=== PATIENT | female | born 2005 | race Hispanic/Latino ===

== ENCOUNTER 2024-06-14 12:36 | Inpatient (IN) | payer SELFPAY ==
[2024-06-14] VITALS (41 sets, daily range): BP systolic 91–125; BP diastolic 52–82; PULSE 75–100; RESP 14–16; TEMP 36.1–37.2; O2SAT 98–100; BMI 27.7
[2024-06-14] MEDS: Lactated Ringers 1,000 ML 999 ML IV (12:45)
[2024-06-14 13:04] LABS: Absolute Lymphocyte Count 0.86 X10^3/uL (0.83-4.51); Absolute Neutrophil Count 6.9 X10^3/uL (2.0-7.7); Basophil# 0.05 X10^3/uL; Basophil% 0.6 % (0-1); Eosinophil# 0.01 X10^3/uL; Eosinophils% 0.1 % (0-5); Hematocrit 36.9 % (37-47); Hemoglobin 11.8 g/dL (12.0-15.0); Lymphocyte # 0.86 X10^3/ul (0.83-4.51); Lymphocyte % 10.5 % (19-41); Mean Corpuscular Hgb 24.7 pg (27.0-32.0); Mean Corpuscular Volume 77.4 fL (81-99); Monocyte# 0.31 X10^3/uL; Monocyte% 3.8 % (0-10); NRBC Flagged by Analyzer 0 % (0-5); Neutrophil # 6.91 X10^3/uL (2.7-7.7); Neutrophil % 84.4 % (47-70); POSITIVE MORPHOLOGY YES; Platelet Count 174 K/mm3 (150-450); RBC Distribution Width CV 13.7 % (11.6-14.6); RBC Distribution Width SD 37.2 fl (35.1-43.9); Red Blood Count 4.77 M/mm3 (4.2-5.4); White Blood Count 8.2 K/mm3 (4.4-11.0)
[2024-06-14 13:10] LABS: Differential Indicated SCAN CRITERIA MET
[2024-06-14] MEDS: Penicillin G Pot 5,000,000 UNITS in 0.9% Normal Saline (100mL MB+) 100 ML 150 UNITS IV (13:26)
[2024-06-14] MEDS: fentaNYL-bupivacaine (epidural) 100 ML BAG EPIDURAL (13:51)
[2024-06-14] MEDS: Lactated Ringers 1,000 ML 200 ML IV (13:58)
[2024-06-14 14:05] LABS: Syphilis Antibodies Non-reactive
[2024-06-14] MEDS: Azithromycin 500 MG in Dextrose 5%-Water (250mL Bag) 250 ML 250 MG IV (14:36)
--- NOTE | 2024-06-14 16:34 | PCM.HP.OB ---
HPI - General General Date of Admission: 06/14/24 HPI Narrative BRIDGETT ANAYA, is a 19 F who presents G1PO at 39w1d in active labor Maternal Data Information PATRICK Calculator Estimated Delivery Date Method Current WG Current Estimate 06/20/24 Manual 39w 1d PFSH PFS Medical History (Updated 06/14/24 @ 17:10 by Priscila Montelongo CNM) Chlamydia Late skilled nursing Medications ?Medication ?Instructions ?Recorded ?Last Taken ?Type aspirin 81 mg capsule 81 mg PO DAILY 06/14/24 Unknown History vits no.130-ferrous fum 1 tab PO DAILY 06/14/24 Unknown History 27 mg iron-folic acid 800 mcg tablet ( Vitamin) Allergy/AdvReac Type Severity Reaction Status Date / Time No Known Allergies Allergy Verified 06/14/24 12:34 Family History no significant family his Surgical History no surgical history Social History Smoking Status: Never smoker History Elective abortions Hx Para 0 Spontaneous abortions Hx # Term Pregnancies Ectopic pregnancies Hx # Pregnancies Multiple births # of living children NST FHR Rate Baby A Baseline: 125 Variability:: Moderate Accelerations:: 15 x 15 Decelerations:: Variable FHR Category:: Category II Uterine Activity:: Every 2-3 minutes strong ROS Constitutional Constitutional: Reports systems reviewed and no addt'l complaints, except as documented; Denies headache(s) Eyes Eyes: Denies acute decrease in peripheral vision, blurry vision or change in vision ENT HEENT: Reports systems reviewed and no addt'l complaints, except as documented Cardiovascular Cardiovascular: Denies chest pain or dizziness Respiratory/Chest Respiratory/Chest: Denies cough, dyspnea, dyspnea on exertion, shortness of breath at rest or shortness of breath with exertion Gastrointestinal Gastrointestinal: Reports abdominal pain; Denies diarrhea, nausea or vomiting Genitourinary Genitourinary: Denies abdominal discomfort Musculoskeletal Musculoskeletal: Denies limited range of motion Integumentary Integumentary: Reports systems reviewed and no addt'l complaints, except as documented Neurologic Neurologic: Reports systems reviewed and no addt'l complaints, except as documented Psychiatric Psychiatric: Reports systems reviewed and no addt'l complaints, except as documented Endocrine Endocrinology: Reports systems reviewed and no addt'l complaints, except as documented Hematologic/Lymphatic Hematologic/Lymphatic: Reports systems reviewed and no addt'l complaints, except as documented Allergic/Immunologic Allergic/Immunologic: Reports systems reviewed and no addt'l complaints, except as documented Vital Signs Vital Signs Vital Signs: 06/14/24 12:41 06/14/24 12:41 06/14/24 12:41 Temperature Temperature Source Temporal Pulse Rate 81 Respiratory Rate Blood Pressure 125/82 H BP Systolic 125 BP Diastolic 82 Pulse Ox 06/14/24 12:41 06/14/24 12:41 06/14/24 12:41 Temperature Temperature Source Pulse Rate 79 Respiratory Rate 16 Blood Pressure BP Systolic BP Diastolic Pulse Ox 100 06/14/24 12:41 06/14/24 13:43 06/14/24 13:43 Temperature 98.0 F Temperature Source Pulse Rate 85 Respiratory Rate Blood Pressure BP Systolic BP Diastolic Pulse Ox 100 06/14/24 13:48 06/14/24 13:48 06/14/24 13:54 Temperature Temperature Source Pulse Rate 93 Respiratory Rate Blood Pressure 107/60 BP Systolic 107 BP Diastolic 60 Pulse Ox 99 06/14/24 13:54 06/14/24 13:54 06/14/24 13:58 Temperature Temperature Source Pulse Rate 85 Respiratory Rate Blood Pressure 105/58 L BP Systolic 105 BP Diastolic 58 Pulse Ox 99 06/14/24 13:58 06/14/24 13:59 06/14/24 13:59 Temperature Temperature Source Pulse Rate 100 91 Respiratory Rate Blood Pressure BP Systolic BP Diastolic Pulse Ox 100 06/14/24 14:03 06/14/24 14:03 06/14/24 14:04 Temperature Temperature Source Pulse Rate 88 90 Respiratory Rate Blood Pressure 105/55 L BP Systolic 105 BP Diastolic 55 Pulse Ox 06/14/24 14:04 06/14/24 14:08 06/14/24 14:08 Temperature Temperature Source Pulse Rate 91 Respiratory Rate Blood Pressure 101/59 L BP Systolic 101 BP Diastolic 59 Pulse Ox 100 06/14/24 14:09 06/14/24 14:09 06/14/24 14:13 Temperature Temperature Source Pulse Rate 92 Respiratory Rate Blood Pressure 102/57 L BP Systolic 102 BP Diastolic 57 Pulse Ox 100 06/14/24 14:13 06/14/24 14:14 06/14/24 14:14 Temperature Temperature Source Pulse Rate 93 93 Respiratory Rate Blood Pressure BP Systolic BP Diastolic Pulse Ox 100 06/14/24 14:18 06/14/24 14:18 06/14/24 14:19 Temperature Temperature Source Pulse Rate 86 82 Respiratory Rate Blood Pressure 106/57 L BP Systolic 106 BP Diastolic 57 Pulse Ox 06/14/24 14:19 06/14/24 14:23 06/14/24 14:23 Temperature Temperature Source Pulse Rate 86 Respiratory Rate Blood Pressure 107/59 L BP Systolic 107 BP Diastolic 59 Pulse Ox 100 06/14/24 14:23 06/14/24 14:23 06/14/24 14:23 Temperature Temperature Source Temporal Pulse Rate 87 Respiratory Rate 16 Blood Pressure BP Systolic BP Diastolic Pulse Ox 06/14/24 14:23 06/14/24 14:23 06/14/24 14:29 Temperature 98.0 F Temperature Source Pulse Rate Respiratory Rate Blood Pressure 107/65 BP Systolic 107 BP Diastolic 65 Pulse Ox 100 06/14/24 14:29 06/14/24 15:07 06/14/24 15:07 Temperature Temperature Source Pulse Rate 87 75 Respiratory Rate Blood Pressure 91/52 L BP Systolic 91 BP Diastolic 52 Pulse Ox 06/14/24 16:03 06/14/24 16:03 06/14/24 16:03 Temperature Temperature Source Temporal Pulse Rate 86 Respiratory Rate Blood Pressure 102/61 BP Systolic 102 BP Diastolic 61 Pulse Ox 06/14/24 16:03 06/14/24 16:03 06/14/24 16:03 Temperature 97.3 F L Temperature Source Pulse Rate Respiratory Rate 14 Blood Pressure BP Systolic BP Diastolic Pulse Ox 100 Weight Weight: 137 lb 6 oz Body Mass Index (BMI) 27.7 Physical Exam Const alert and oriented x3 General Appearance: cooperative Orientation / Consciousness: awake, oriented to person, oriented to place and oriented to time Exam Limitations: no limitations HEENT normocephalic Head and Scalp: normal to inspection, normocephalic and atraumatic Face and Sinus: normal facial exam Eyes General Eye: normal appearance of both eyes Neck full ROM Chest Chest: symmetrical chest wall rise Resp normal respiratory effort and normal air movement Auscultation: clear to auscultation bilaterally Cardio regular rate, regular rhythm, S1 normal heart sound, S2 normal heart sound, no murmurs, no rub, no gallops and no clicks GI normal to inspection, nondistended, normoactive bowel sounds and non-tender appearance of the vagina normal Bladder / Kidney Exam: no CVA tenderness Back/Spine normal ROM Extremity normal to inspection and full ROM Skin no rashes or lesions noted Neuro oriented x3, CN's II-XII intact bilaterally and moves all extremities Sensorium / Orientation: awake, alert and oriented to person Motor Exam: clonus absent Deep Tendon Reflexes: Rt Patellar (L4): 2+ and Lt Patellar (L4): 2+ Labs Labs Labs: Blood Type O POSITIVE Antibody Screen NEGATIVE Hct 36.9 % (37-47) L Hgb 11.8 g/dL (12.0-15.0) L Syphilis Total Ab Non-reactive 04/10/24 CT positive, treatment completed. Retesting on 05/14/24 but results not back GC negative RPR negative Rubella non immune HBsAG negative HepC negative HIV negative O positive 1hr GCT normal GBS positive Assessment & Plan (1) Active labor at term: (2) 39 weeks gestation of : (3) Chlamydia infection affecting : COMMENT: 04/10/24 positive, did not complete treatment 05/14/24 JESUS MANUEL positive, treatment completed 06/12/24 JESUS MANUEL, no results Will treat with IV azithromycin during labor x1 dose (4) Language barrier: COMMENT: Romansh Speaking (5) Financial insecurity: PLAN: Plan 1) Admit to labor and delivery 2) Routine labs 3) Epidural for pain management upon request 4) Azithromycin IV x1 dose for unknown chlamydia results 5) GBS positive. PCN IV for prophylaxis 6) collaborative physician and notified of patient status, above assessment and plan.
[2024-06-14] MEDS: Oxytocin 15 Units/NS 250ml 15 UNITS/250 ML IV.SOLN 334 UNITS IV (16:47)
--- NOTE | 2024-06-14 17:12 | OP.PCM_ITS ---
Assessment & Plan (1) Financial insecurity: (2) Language barrier: COMMENT: Finnish Speaking (3) Vaginal delivery: (4) First degree perineal laceration: (5) control counseling: COMMENT: Desires Nexplanon prior to discharge (6) Lactating mother: (7) Rubella non-immune status, antepartum: COMMENT: Offer vaccine PP Maternal Data Information PATRICK Calculator Estimated Delivery Date Method Current WG Current Estimate 06/20/24 Manual 39w 1d Vaginal Delivery Maternal Presentation Maternal Presentation: Active Labor Operative Information Date of Procedure: 06/14/24 Pre-Operative Diagnosis: Active labor at term Post-Operative Diagnosis: , first degree perineal laceration Surgery / Procedure Performed: Spontaneous Vaginal Delivery Type of Anesthesia: Epidural Estimated Blood Loss: 300ml Time of Delivery: 16:43 Findings Description of Procedure: Progressed to complete with urge to push. Epidural for pain management. of viable female over first degree perineal laceration.APGARS 8,9 respectively. Infant head delivered with body immediately forthcoming. Placed on maternal abdomen, strong cry. Mouth and nares suctioned for secretions. Pitocin started for active 3rd stage management. Cord doubly clamped and cut by FOB after pulsations ceased, delayed cord clamping. Placenta delivered intact via bowman, 3 vessel cord intact. Perineum inspected and revealed 1st degree perineal laceration. Repaired with 3.0 vicryl rapide and epidural. Fundus firm and hemostasis achieved. EBL 300ml. Mom and baby stable, planning to breastfeed. Family bonding well. notified of delivery. Presentation: Vertex and COLIN Amniotic Membrane Rupture Type: Artificial Amniotic Fluid Description: Clear Placental Delivery Description: Spontaneous Placenta Disposition: [facility] Cord Vessel Description: 3 Vessels Cord Entanglement: None A Gender: Female (1 minute): 8 (5 minute): 9 Delayed Cord Clamping: Yes Post Vaginal Delivery Medications Given After Delivery: IV Pitocin Episiotomy Description: None Laceration: Perineal Extension/lac and 1st degree Complication Complications: None
[2024-06-14] MEDS: Oxytocin 15 Units/NS 250ml 15 UNITS/250 ML IV.SOLN 83 UNITS IV (17:48)
[2024-06-14] MEDS: 0.9% Saline Lock 10 ML Syringe IV (21:10)
--- NOTE | 2024-06-14 22:43 | NURSING ---
quality process engineer was rommel. #[id number].
--- NOTE | 2024-06-14 23:28 | NURSING ---
grisel lang interpreter being used. #[id number].
--- NOTE | 2024-06-14 23:52 | NURSING ---
this RN used fisher quahog to explain the MMR vaccine since pt is rubella non - immune upon admission. comoran education handout given. pt declines at this time. no MMR to be administered.
[2024-06-15] VITALS (10 sets, daily range): BP systolic 87–107; BP diastolic 50–61; PULSE 72–94; RESP 14–16; TEMP 36.2–36.7; O2SAT 81–99
--- NOTE | 2024-06-15 04:20 | NURSING ---
duran store detective with number [id number].
[2024-06-15 04:41] LABS: Absolute Lymphocyte Count 1.99 X10^3/uL (0.83-4.51); Absolute Neutrophil Count 8.4 X10^3/uL (2.0-7.7); Basophil# 0.04 X10^3/uL; Basophil% 0.4 % (0-1); Eosinophil# 0.03 X10^3/uL; Eosinophils% 0.3 % (0-5); Hematocrit 29.4 % (37-47); Hemoglobin 9.4 g/dL (12.0-15.0); Lymphocyte # 1.99 X10^3/ul (0.83-4.51); Lymphocyte % 17.9 % (19-41); Mean Corpuscular Hgb 24.7 pg (27.0-32.0); Mean Corpuscular Volume 77.4 fL (81-99); Mean Platelet Vol. 14.4 fl (6.2-12.0); Monocyte% 5.4 % (0-10); NRBC Flagged by Analyzer 0 % (0-5); Neutrophil # 8.38 X10^3/uL (2.7-7.7); Neutrophil % 75.5 % (47-70); Platelet Count 158 K/mm3 (150-450); RBC Distribution Width CV 13.6 % (11.6-14.6); RBC Distribution Width SD 37.5 fl (35.1-43.9); White Blood Count 11.1 K/mm3 (4.4-11.0)
[2024-06-15] MEDS: Etonogestrel 68 MG IMPLANT SC (21:08)
--- NOTE | 2024-06-15 21:28 | PN.OBGYN_ITS ---
Subjective Subjective pt doing well. ambulating and voiding without difficulty. ricky PO without N/V. lochia normal. pain controlled. Objective Data Objective Data Vital Signs: Vital Signs Temp Pulse Resp BP Pulse Ox O2 Del Method 97.7 F L 94 16 100/58 L 98 Room Air 06/15/24 16:40 06/15/24 20:48 06/15/24 16:40 06/15/24 20:48 06/15/24 20:48 06/15/24 12:45 Oxygen Delivery Method Room Air Weight: 137 lb 6 oz Body Mass Index (BMI) 27.7 Intake & Output: Intake and Output for Last 24 Hours 06/13/24 06/14/24 06/15/24 23:59 23:59 23:59 Intake Total 2211.52 / 2211.52 Output Total 1700 / 1700 1000 / 1000 Balance 511.52 / 511.52 -1000 / -1000 Lab / Micro Data 06/15/24 04:25 Labs: Laboratory Results - last 24 hr 06/15/24 04:25: WBC 11.1 H, RBC 3.80 L, Hgb 9.4 L, Hct 29.4 L, MCV 77.4 L, MCH 24.7 L, MCHC 32.0, RDW Std Deviation 37.5, RDW Coeff of Sarah 13.6, Plt Count 158, MPV 14.4 H, Immature Gran % (Auto) 0.500, Neut % (Auto) 75.5 H, Lymph % (Auto) 17.9 L, [place] % (Auto) 5.4, Eos % (Auto) 0.3, Baso % (Auto) 0.4, Absolute Neuts (auto) 8.4 H, Absolute Lymphs (auto) 1.99, Nucleated RBC % 0 Micro: Microbiology 06/14/24 12:20 Genital vaginal Chlamydia/Neisseria (PCR) - Final Physical Exam Const alert and no apparent distress General Appearance: comfortable HEENT normocephalic Assessment & Plan (1) Lactating mother: (2) First degree perineal laceration: (3) Vaginal delivery: PLAN: PPD#1 s/p . Doing well. Routine care. Anticipate discharge tomorrow.
--- NOTE | 2024-06-15 21:29 | OP.PCM_ITS ---
Problems Associated Problem List Diagnoses (1) Nexplanon insertion: Report of Operation Date of Procedure: 06/15/24 Pre-Operative Diagnosis: Nexplanon insertion Post-Operative Diagnosis: As above Surgery/Procedure Performed:: Request for Nexplanon Description of Surgical Findings:: N/A Surgeon: Samia Williamson editing internship: None Type of Anesthesia: Local (3 cc of 1% lidocaine) Special Medications: None Specimen's removed: None Drains: N/A Estimated Blood Loss (mL): < 10 cc Fluids Replaced: N/A Description of Procedure: Discussed r/b/a Nexplanon and questions answered using energy systems laboratory director. Patient requests Nexplanon and consent signed. Patient was placed in dorsal supine position with her left arm flexed at the elbow and externally rotated. The area of insertion was marked. The area of planned insertion was prepped with chlorhexidine. 3 cc of 1% lidocaine was injected subdermally along the planned insertion tunnel. The Nexplanon a pplicator was grasped and the protection was removed from the applicator. The white Nexplanon device was visualized within the applicator. The application needle was inserted subdermally in the standard fashion and the device was deployed. The Nexplanon was palpated by myself and the patient to verify correct subdermal location. The site was dressed with a Steri-Strip and a pressure bandage. User card was completed and given to the patient. Grafts/Implants Used: None Complications None
[2024-06-16] VITALS (7 sets, daily range): BP systolic 96–111; BP diastolic 53–63; PULSE 74–77; RESP 14–17; TEMP 36.3–36.7; O2SAT 98
--- NOTE | 2024-06-16 07:50 | PCM.PN.OB ---
Subjective Subjective Doing well per patient and nursing staff. Ambulating and taking PO without difficulty. Voiding and passing flatus. Pain controlled. , services for assistance. Denies headache, visual changes, chest pain, shortness of breath, leg pain or increased bleeding. Lochia normal.Djiboutian speaking, interpretor services Objective Data Objective Data Vital Signs: Vital Signs Temp Pulse Resp BP Pulse Ox O2 Del Method 97.9 F 77 14 96/53 L 98 Room Air 06/16/24 02:35 06/16/24 07:47 06/16/24 02:35 06/16/24 07:47 06/16/24 02:35 06/16/24 02:35 Oxygen Delivery Method Room Air Weight: 137 lb 6 oz Body Mass Index (BMI) 27.7 Intake & Output: Intake and Output for Last 24 Hours 06/14/24 06/15/24 06/16/24 23:59 23:59 23:59 Intake Total 2211.52 / 2211.52 Output Total 1700 / 1700 1000 / 1000 Balance 511.52 / 511.52 -1000 / -1000 Lab / Micro Data 06/15/24 04:25 Micro: Microbiology 06/14/24 12:20 Genital vaginal Chlamydia/Neisseria (PCR) - Final ROS Constitutional Constitutional: Reports systems reviewed and no addt'l complaints, except as documented; Denies headache(s) Eyes Eyes: Denies acute decrease in peripheral vision, blurry vision or change in vision ENT HEENT: Reports systems reviewed and no addt'l complaints, except as documented Cardiovascular Cardiovascular: Denies chest pain or dizziness Respiratory/Chest Respiratory/Chest: Denies cough, dyspnea, dyspnea on exertion, shortness of breath at rest or shortness of breath with exertion Gastrointestinal Gastrointestinal: Denies abdominal pain, diarrhea, nausea or vomiting Genitourinary Genitourinary: Denies abdominal discomfort Musculoskeletal Musculoskeletal: Denies limited range of motion Integumentary Integumentary: Reports systems reviewed and no addt'l complaints, except as documented Neurologic Neurologic: Reports systems reviewed and no addt'l complaints, except as documented Psychiatric Psychiatric: Reports systems reviewed and no addt'l complaints, except as documented Endocrine Endocrinology: Reports systems reviewed and no addt'l complaints, except as documented Hematologic/Lymphatic Hematologic/Lymphatic: Reports systems reviewed and no addt'l complaints, except as documented Allergic/Immunologic Allergic/Immunologic: Reports systems reviewed and no addt'l complaints, except as documented Physical Exam Const alert and oriented x3 General Appearance: cooperative Orientation / Consciousness: awake, oriented to person, oriented to place and oriented to time Exam Limitations: no limitations HEENT normocephalic Head and Scalp: normal to inspection, normocephalic and atraumatic Face and Sinus: normal facial exam Eyes General Eye: normal appearance of both eyes Neck full ROM Chest Chest: symmetrical chest wall rise Resp normal respiratory effort and normal air movement Auscultation: clear to auscultation bilaterally Cardio regular rate, regular rhythm, S1 normal heart sound, S2 normal heart sound, no murmurs, no rub, no gallops and no clicks GI normal to inspection, nondistended, normoactive bowel sounds and non-tender appearance of the vagina normal Bladder / Kidney Exam: no CVA tenderness Back/Spine normal ROM Extremity normal to inspection and full ROM Skin no rashes or lesions noted Neuro oriented x3, CN's II-XII intact bilaterally and moves all extremities Sensorium / Orientation: awake, alert and oriented to person Motor Exam: clonus absent Deep Tendon Reflexes: Rt Patellar (L4): 2+ and Lt Patellar (L4): 2+ Assessment & Plan (1) Nexplanon insertion: (2) Rubella non-immune status, antepartum: COMMENT: Offer vaccine PP (3) First degree perineal laceration: (4) Vaginal delivery: (5) Financial insecurity: (6) Language barrier: COMMENT: Djiboutian Speaking PLAN: Plan 1) PPD#2 2) Vitals stable 3) Pain management 4) D/C home today 5) F/U in 2 weeks and 6 weeks PP
--- NOTE | 2024-06-16 07:53 | PCM.DC.SUM ---
Providers Date of Admission: 06/14/24 Primary Care Physician: Adele Primary Care Phys Reason For Visit: VAGINAL DELIVERY Diagnosis Discharge Diagnosis (1) Nexplanon insertion: Status: Acute Code(s): Z30.017 - Encounter for initial prescription of implantable subdermal contraceptive (2) Rubella non-immune status, antepartum: Status: Acute Code(s): O09.899 - Supervision of other high risk pregnancies, unspecified trimester; Z28.39 - Other underimmunization status (3) First degree perineal laceration: Status: Acute Code(s): O70.0 - First degree perineal laceration during delivery (4) Vaginal delivery: Status: Acute Code(s): O80 - Encounter for full-term uncomplicated delivery (5) Financial insecurity: Status: Acute Code(s): Z59.86 - Financial insecurity (6) Language barrier: Status: Acute Code(s): Z60.3 - Acculturation difficulty; Z75.8 - Other problems related to medical facilities and other health care Plan 1) PPD#2 2) Vitals stable 3) Pain management 4) D/C home today 5) F/U in 2 weeks and 6 weeks PP Medications at Discharge Home Medications aspirin 81 mg capsule 81 mg PO DAILY 06/14/24 vits no.130-ferrous fum 27 mg iron-folic acid 800 mcg tablet ( Vitamin) 1 tab PO DAILY 06/14/24 acetaminophen 500 mg tablet 1,000 mg (2 x 500 mg) PO Q6H PRN PRN Pain 1-10 Or Fever #0 tabs 06/16/24 ibuprofen 600 mg tablet 600 mg PO Q6H PRN PRN Pain Score 1-10 #0 tabs 06/16/24 Hospital Course Summary of Care Provided Minutes Spent on Discharge: 15 Weight / BMI Weight Weight: 137 lb 6 oz Body Mass Index (BMI) 27.7 ABG / Lab / Microbiology Data 06/15/24 04:25 Microbiology: Microbiology 06/14/24 12:20 Genital vaginal Chlamydia/Neisseria (PCR) - Final D/C Instructions Discharge Diet: No restrictions Discharge Activity: Return to Normal Activity, May Drive, May Shower and May Take a Tub Bath May resume sexual activity in: 6 weeks Weight Bearing Status: Full weight bearing Call your doctor if you observe: Fever of 101 or Higher, Inability to urinate, Using more than 1 pad per hour, Shortness of breath, Chest pain, Increased palpitations (irregular heartbeat), Calf discomfort and Uncontrolled pain Please Follow Up With: Priscila Montelongo CNM When: 2 week virtual visit and 6 week visit Meaningful Use Info Meaningful Use Meaningful Use Diagnoses (Choose all that apply): None applicable Ischemic Stroke Statin Dosing Therapy Reference: STATIN DOSE THERAPY REFERENCE: * Patients > 75 years receive moderate or high dose statin therapy. * Patients 75 years or YOUNGER should receive HIGH intensity statin dose unless contraindicated. You will be required to document reason for non-treatment if statin daily dose does not meet guidelines. HIGH DOSE STATIN THERAPY DAILY Atorvastatin > than or = to 40 mg Rosuvastatin > than or = to 20 mg Amlodipine + Atorvastatin > than or = to 2.5/40 mg Ezetimibe + Simvastatin 10/80 mg Simvastatin 80mg Discharge Plan Admission Admit Date/Time: 06/14/24 12:36 Primary Reason for Your Visit: Vaginal Delivery Attending Provider: Priscila Montelongo Primary Care Provider: Care Physician,No Primary Discharge Orders/Prescriptions Prescriptions: New acetaminophen 500 mg Tablet 1,000 mg PO Q6H PRN PRN (Reason: Pain 1-10 Or Fever) Qty: 0 0RF ibuprofen 600 mg Tablet 600 mg PO Q6H PRN PRN (Reason: Pain Score 1-10) Qty: 0 0RF No Action Vitamin 27 mg iron- 800 mcg tablet 1 tab PO DAILY aspirin 81 mg capsule 81 mg PO DAILY Referrals / Follow Up: Care Physician,No Primary [Primary Care Provider] - Disposition Disposition (needs filled in before D/C Order can be placed): Home, Self Care
[2024-06-16] MEDS: Ibuprofen 600 MG Tablet PO (08:12)
--- NOTE | 2024-06-16 13:58 | CASEMGMT ---
Social Work Assessment Labor and Delivery Unit Patient Address: [address] [place], [place] [address]. [place] [address] Phone number: [phone] Date of Referral: 06/14/24 Time of Referral:? 1327 Referred By: Priscila Montelongo Date of Intervention: ??06/16/24 Time of Intervention:? 899 Reason for Referral:? limited support Sw completed chart review and acknowledges social work consult. Sw presented to bedside and introduced self to mother of baby (JESUS Lewis). Sw used assistant winemaker, Noemi Mccabe (ID: [id number]) and explained sw role during hospitalization and completed psychosocial assessment. History obtained from: medical records, MOB Household composition: RYAN states that she is currently residing with her friend/ support person, Raisa and her cousin. RYAN denies any issues or concerns with her housing at this time, stating that it is safe and secure and she is not in jeopardy of losing it. Patient's parent/guardian status:? ?RYAN states that she and father of baby (TREVER- Hector Loza) were together for three months when she got . RYAN states that they are no longer in a relationship and she is not sure what his involvement will be with baby. RYAN states that FOB has told her that if she needs things for baby he can help, but has also told her that babies are expensive. RYAN did put TREVER's name on certificate. RYAN denies any domestic violence or coercion during her time with FOB. RYAN states that her was unplanned, but it was consensual. Medical History: ?RYAN is 19 year old female who is 1, para 0- now 1 following labor and delivery of . RYAN received care during with [facility], her care did start late. RYAN presented to hospital and delivered baby on 06.14.24 via spontaneous vaginal delivery. Baby girl, named Juan was born weighing 6lb 10oz with apgars of 8 and 9 at one and five minutes of life, respectfully. RYAN states that she is bottle feeding baby, and has bottles/ nipples at home. Baby will have follow up with [facility] pediatrics. Educational Status:? RYAN reports that she completed high school in [facility] and has now been living in the for 1.5 years. 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 Supplies:?? RYAN states that she has a safe sleep space, car seat, clothes, diapers and wipes. MOB states that she has some but not a lot regarding formula for baby. Deja assisted RYAN in getting an appointment scheduled with [facility], however this was not until SaturdayJuly 17. Deja informed RYAN that the hospital will send home some formula with her, however it will not be enough to get her to her scheduled [facility] appointment. Deja told MOB that she may need to ask for assistance from FOB to help her obtain more. MOB expressed understanding and agreement. Childcare/Caregiver(s):? RYAN states that she has a friend who will provide childcare for baby when she returns to work. Transportation:?? RYAN does not drive, but states that she has friends and family who help her get to work and scheduled appointments. MOB states that her friend that works with her takes her to and from work. MOB states that her cousin that she lives with also helps her with transportation. MOB states that today FOB is picking her and baby up from hospital when ready for discharge. Programs/Agencies Involved: RYAN completed necessary documentation to apply for Medicaid insurance for herself and . RYAN also connected with [facility] and has appointment scheduled with them for 07/17. ??? Children Services/Legal Issues:??No prior involvement with Children Services. NO issues or concerns warranting referral to be made at this time.? Behavioral Health Issues: ??Mental Health History:?RYAN denies mental health history for herself. ?? Substance Use History:?MOB denies substance use prior to and during .? Family History:???MOB denies family history of substance use and significant mental health diagnoses. ?? Drug Screens: ??No drug screens observed in chart review. Family/Social Stressors:? RYAN denies any issues, concerns or stressors at this time. Deja able to recognize that RYAN is a young first time mom with limited supports and resources. MOB also only [place]i speaking and navigating resources and appointments can be a hardship for her. Current relationship status with MOB and FOB unknown. Although RYAN denies violence or coercion. Support Systems: MOB states that her roommate Raisa and her cousin are her two biggest supports. Depression/Shaken Baby/Safe Sleeping:?Sw educated MOB at length regarding signs and symptoms of baby blues and mood and anxiety disorders. MOB states that she is familiar with these terms and was understanding that she should reach out to her OBGYN if she felt as though she is struggling at anytime during this period. Sw educated MOB on shaken baby prevention and ABCs of safe sleep, MOB expressed understanding. ASSESSMENT:? MOB and baby admitted following labor and delivery of . MOB has limited supports and resources. MOB and FOB not in relationship at this time, and MOB uncertain about FOB's intentions on parenting now that baby has been born. MOB has applied for medicaid insurance for herself to cover hospitalization for labor and delivery and for . MOB also connected to [facility] and has future appointment scheduled. MOB was observed to provide hands on and loving care to . MOB engaged in completion of psychosocial assessment and appreciated support and education. List of [facility] resources provdied to MOB. PLAN:? MOB and baby to be discharged when medically ready for discharge. ?No other services requested or indicated. Ara Montemayor, CATTLE MANAGER, ARTIFICIAL FLOWERS STARCHER
== END 2024-06-16 13:27 | disposition home or self-care (01) | DRG 807 ==
LOC: WPOUT 12:39 → WP 12:39
PROVIDERS: Admitting Provider Advanced Practice Midwife; Visit Provider Advanced Practice Midwife
DX: O99.824 Streptococcus B carrier state complicating childbirth (principal); Z37.0 Single live birth; Z30.017 Encounter for initial prescription of implantable subdermal contraceptive; O70.0 First degree perineal laceration during delivery; Z59.86 Financial insecurity; Z3A.39 39 weeks gestation of pregnancy; Z60.3 Acculturation difficulty; Z75.8 Other problems related to medical facilities and other health care
CPT/HCPCS: 59025; 59050; 85025; 86780; 86850; 86900; 86901; 87491; 87591; 99221; J7120; A4216; G0378